=== PATIENT | female | born 1990 | race American Indian/Alaskan Native ===

== ENCOUNTER 2016-08-20 13:05 | Emergency (ER) | payer MEDICAID ==
[2016-08-20] MEDS ORDERED: Sodium Chloride 0.9% 1,000 ML IV STA (14:25)
--- NOTE | 2016-08-20 14:50 | ED PDOC ---
Arrival/HPI - General Chief Complaint: Dental Pain Time Seen by Provider: 08/20/16 14:11 Historian: Patient - History of Present Illness Narrative History of Present Illness (Text): 08/20/16 14:32 Ralph Alvarez is a 26 year old female, who is about 7-8 weeks , who presents to the emergency department for a dental abscess and sharp left sided abdominal pain x 1 day. Patient had work done on the tooth with the abscess but it returned. Patient states she experiences pain with biting and hot/warm foods. No trouble swalling. Patient's abdominal pain does not have any alleviating or worsening factors. It's left lower quadrant intermittent and sharp at times x 1 day. No vagininal bleeding. Some white thick discharge. Patient otherwise denies any fever, chills, chest pain, shortness of breath, nausea, vomiting, diarrhea, urinary symptoms, back pain, neck pain, headache, dizziness, or any other complaints. P: 1 A: 1 PMD: None Clam Digger: None 08/20/16 15:09 Time/Duration: 24 hours Symptom Onset: Gradual Symptom Course: Unchanged Activities at Onset: Light Context: Home Past Medical History - Provider Review Nursing Documentation Reviewed: Yes - Reproductive Menopause: No - Psychiatric Hx Substance Use: No - Anesthesia Hx Anesthesia: No Hx Anesthesia Reactions: No Hx Malignant Hyperthermia: No Family/Social History - Physician Review Nursing Documentation Reviewed: Yes Family/Social History: No Known Family HX Smoking Status: Unknown If Ever Smoked Hx Alcohol Use: Yes Frequency of alcohol use: Socially Hx Substance Use: No Allergies/Home Meds Allergies/Adverse Reactions: Allergies shellfish derived Allergy (Verified 08/20/16 13:27) RASH Home Medications: Home Meds Medication Instructions Recorded Confirmed Vit Calc,Iron,Folic 1 each PO DAILY 08/20/16 08/20/16 [ Vitamins] Review of Systems - Physician Review All systems were reviewed & negative as marked: Yes - Review of Systems Constitutional: Normal. absent: Fevers Eyes: Normal ENT: Other (Dental Abscess) Respiratory: Normal. absent: SOB, Cough Cardiovascular: Normal. absent: Chest Pain Gastrointestinal: Normal. absent: Abdominal Pain, Diarrhea, Nausea, Vomiting Genitourinary Female: Normal, Vaginal Discharge. absent: Dysuria, Frequency, Hematuria, Urine Output Changes, Vaginal Bleeding Musculoskeletal: Normal. absent: Back Pain, Neck Pain Skin: Normal Neurological: Normal. absent: Headache, Dizziness Endocrine: Normal Hemo/Lymphatic: Normal Psychiatric: Normal Physical Exam Vital Signs Reviewed: Yes Vital Signs Temp Pulse Resp BP Pulse Ox 08/20/16 13:22 99.7 F H 77 16 119/83 99 Temperature: Febrile Blood Pressure: Normal Pulse: Regular Respiratory Rate: Normal Appearance: Positive for: Well-Appearing, Non-Toxic, Comfortable Pain Distress: None Mental Status: Positive for: Alert and Oriented X 3 - Systems Exam Head: Present: Atraumatic, Normocephalic Pupils: Present: PERRL Extroacular Muscles: Present: EOMI Conjunctiva: Present: Normal Mouth: Present: Moist Mucous Membranes, Other (Swelling of the gums of the 31st and 32nd tooth, no visual pus) Pharnyx: Present: Normal. No: ERYTHEMA Nose (External): Present: Atraumatic Nose (Internal): Present: Normal Inspection Neck: Present: Normal Range of Motion Respiratory/Chest: Present: Clear to Auscultation, Good Air Exchange. No: Respiratory Distress, Accessory Muscle Use Cardiovascular: Present: Regular Rate and Rhythm, Normal S1, S2. No: Murmurs Abdomen: Present: Normal Bowel Sounds. No: Tenderness, Distention, Peritoneal Signs Genitourinary/Pelvic Exam: Present: Normal External Genitalia, Vaginal Discharge (white thick), Cervical os Closed, Other (Working Manager RN Carolyn). No: Vaginal Bleeding, Vaginal Lesions, Adenexal Tenderness, Adenexal Mass, Cervical Motion Tendernes, Odor Back: Present: Normal Inspection Upper Extremity: Present: Normal Inspection. No: Cyanosis, Edema Lower Extremity: Present: Normal Inspection. No: Edema Neurological: Present: GCS=15, CN II-XII Intact, Speech Normal, Motor Func Grossly Intact, Normal Sensory Function, Gait Normal Skin: Present: Warm, Dry, Normal Color. No: Rashes Psychiatric: Present: Alert, Oriented x 3, Normal Insight, Normal Concentration Medical Decision Making ED Course and Treatment: 08/20/16 14:32 Impression: 26 year old female with dental abscess and sharp abdominal cramping both starting today. Differential Diagnosis include but are not limited to: Dental abscess & Threatened Plan: -- Transvaginal US -- Labs -- IV Fluids -- Reassess and disposition Dental evaluation shows no discharge and some gum swelling and redness. Patient reports discharge but none is appreciated. Will consider early abscess and give antibiotics. Progress Notes: 08/20/16 15:19 On pelvic exam with diesel engine specialist RN Tawny, I saw white thick discharge consistent with a yeast infection. 08/20/16 16:29 Patient feels better. She was given instructions to follow up with her obgyn and if she'd like she can follow up with Dr. Garcia our LINE INSPECTOR. She was also referred to Dr. Kendrick Dentistry for follow up of her tooth pain with possible early abscess. - Lab Interpretations Lab Results: 08/20/16 14:50 08/20/16 14:50 Lab Results 08/20/16 14:50: Blood Type O POSITIVE, Antibody Screen Negative, BBK History Checked No verified bt 08/20/16 14:50: Beta HCG, Quant 89297.00 H 08/20/16 14:50: Sodium 135, Potassium 4.1, Chloride 101, Carbon Dioxide 24, Anion Gap 14, BUN 12, Creatinine 0.5, Est GFR ( Amer) > 60, Est GFR (Non- Af Amer) > 60, Random Glucose 77, Calcium 9.5, Total Bilirubin 0.5, AST 25, ALT 26, Alkaline Phosphatase 48, Total Protein 7.9, Albumin 4.4, Globulin 3.6, Albumin/Globulin Ratio 1.2 08/20/16 14:50: WBC 6.8, RBC 4.27, Hgb 12.3, Hct 36.3, MCV 85.0, MCH 28.8, MCHC 33.9, RDW 13.2, Plt Count 229, MPV 10.6, Gran % 62.0, Lymph % (Auto) 29.1, [place] % (Auto) 7.7 H, Eos % (Auto) 0.9 L, Baso % (Auto) 0.3, Gran # 4.21, Lymph # 2.0 , [place] # 0.5, Eos # 0.1, Baso # 0.02 I have reviewed the lab results: Yes - RAD Interpretation Radiology Orders: 08/20/16 14:25 OB TRANSVAGINAL [US] Stat Loom Overhauler: Radiologist - Medication Orders Current Medication Orders: Sodium Chloride (Sodium Chloride 0.9%) 1,000 mls @ 100 mls/hr IV .Q10H STA Stop: 08/21/16 00:24 Last Admin: 08/20/16 14:51 Dose: 100 mls/hr - Darbyibe Statement The provider has reviewed the documentation as recorded by the Abdiaziz Villalta Provider Attestation: All medical record entries made by the Abdiaziz were at my direction and personally dictated by me. I have reviewed the chart and agree that the record accurately reflects my personal performance of the history, physical exam, medical decision making, and the department course for this patient. I have also personally directed, reviewed, and agree with the discharge instructions and disposition. Disposition/Present on Arrival - Present on Arrival Any Indicators Present on Arrival: No History of DVT/PE: No History of Uncontrolled Diabetes: No Urinary Catheter: No History of Decub. Ulcer: No History Surgical Site Infection Following: None - Disposition Have Diagnosis and Disposition been Completed?: Yes Diagnosis: Vaginal yeast infection, Dental abscess Disposition: HOME/ ROUTINE Disposition Time: 16:31 Patient Plan: Discharge Patient Problems: Current Active Problems Problem Status Onset Vaginal yeast infection Acute Dental abscess Acute Condition: GOOD Discharge Instructions (ExitCare): Threatened Miscarriage (ED), Vulvovaginal Candidiasis (ED), Dental Abscess (ED) Additional Instructions: Ms Alvarez, thank you for letting us take care of you today. Your provider was Dr. Cameron. You were treated for Threatened , Vaginal Candidiasis, Dental Abscess. The emergency medical care you received today was directed at your acute symptoms. If you were prescribed any medication, please fill it and take as directed. It may take several days for your symptoms to resolve. Return to the Emergency Department if your symptoms worsen, do not improve, or if you have any other problems. Please contact your doctor or call one of the physicians/clinics you have been referred to that are listed on the Patient Visit Information form that is included in your discharge packet. Bring any paperwork you were given at discharge with you along with any medications you are taking to your follow up visit. Our treatment cannot replace ongoing medical care by a primary care provider (PCP) outside of the emergency department. Thank you for allowing the [facility] team to be part of your care today. If you had an X-Ray or CT scan: A Radiologist will review the ED reading if any change in treatment is needed we will contact you. If you had a blood, urine, or wound culture: It will take several days for the results, if any change in treatment is needed we will contact you. If you had an STI test: It will take 48 hours for the results. Please call after 1 week if you have not heard back. Prescriptions: Amoxicillin/Clavulanate [Augmentin 875 MG-125 MG] 1 tab PO BID #14 tab Clotrimazole 1% Vaginal [Lotrimin 1% Vaginal] 1 applic VG QPM #7 tube Referrals: Diego Kendrick DMD [Staff Provider] - Follow up with primary Bereket Garcia DO [Staff Provider] - Follow up with primary Forms: [employer] Visits Discharge ([place]ese)
[2016-08-20 15:11] LABS: ADD MANUAL DIFF? NO
[2016-08-20 15:21] LABS: BASO # 0.02 K/mm3 (0.0-2.0); BASO % 0.3 % (0.0-3.0); EOS # 0.1 (0.0-0.7); EOS % 0.9 % (1.5-5.0); GRAN # 4.21 (1.4-6.5); HEMATOCRIT 36.3 % (36.0-48.0); LYMPH % 29.1 % (22.0-35.0); MEAN CORPUSCULAR HEMOGLOBIN 28.8 pg (25.0-35.0); MEAN CORPUSCULAR HGB CONC 33.9 g/dl (31.0-37.0); MEAN PLATELET VOLUME 10.6 fl (7.0-11.0); MONO # 0.5 (0.1-0.6); MONO % 7.7 % (1.0-6.0); PLATELET COUNT 229 10^3/uL (120.0-450.0); RED CELL DISTRIBUTION WIDTH 13.2 % (11.5-14.5); WHITE BLOOD COUNT 6.8 10^3/ul (4.5-11.0)
[2016-08-20 15:42] LABS: ALB/GLOB RATIO 1.2 (1.1-1.8); ALKALINE PHOSPHATASE 48 U/L (38-133); ALT/SGPT 26 U/L (7-56); AST/SGOT 25 U/L (15-39); BILIRUBIN,TOTAL 0.5 mg/dL (0.2-1.3); BLOOD UREA NITROGEN 12 mg/dL (7-21); CALCIUM 9.5 mg/dL (8.4-10.5); CARBON DIOXIDE 24 mmol/L (21-33); CHLORIDE 101 mmol/L (98-107); GFR AFRICAN-AMERICAN > 60; GLUCOSE,RANDOM 77 mg/dL (70-110); POTASSIUM 4.1 mmol/L (3.6-5.0); SODIUM 135 mmol/L (132-148); TOTAL PROTEIN 7.9 g/dL (5.8-8.3)
--- NOTE | 2016-08-20 16:20 | US ---
HISTORY: Abdominal pain in . ; FDP July 05 COMPARISON: No prior TECHNIQUE: Transvaginal sonographic evaluation of the pelvis performed. Findings: Uterus measures 8.5 x 5.8 x 6.4 cm. Cervix measures 3.54 cm and is closed. There is a single living intrauterine gestation with measurements as follows: Gestational sac: MSD = 2.15 cm = 6 weeks 5 days Yolk sac: 0.34 cm pole: 0.47 = 6 weeks 1 day. Heart motion: 158 BPM Average ultrasound age: 6 weeks 3 days +/-0 weeks 3 days No free fluid seen in the cul sac. Right ovary measures 2.6 x 1.7 x 1.0 cm exhibits arterial flow. Left ovary measures 2.3 x 1.9 x 1.75 cm and also exhibits arterial flow. Small cyst measuring 1.2 x 0.92 x 0.65 cm. Impression: Single living intrauterine gestation at approximately 6 weeks 3 days +/-0 weeks 3 days. Recommend followup short-term followup ultrasound to assess continued viability. .
[2016-08-20] MEDS ORDERED: Amoxicillin-Clav 875-125 mg Tab PO STA (16:30)
[2016-08-20 16:48] VITALS: BP 122/62; PULSE 80; RESP 18; TEMP 98.7; O2SAT 100
== END 2016-08-20 16:56 | disposition home or self-care (01) ==
LOC: ED 13:05
DX: B37.3 Candidiasis of vulva and vagina (principal); K04.7 Periapical abscess without sinus
CPT/HCPCS: 76817; 80053; 84702; 85025; 86850; 86900; 87491; 87591; 99283; J7040

== ENCOUNTER 2016-12-10 19:08 | Emergency (ER) | payer MEDICAID, OTHER ==
[2016-12-10 19:18] VITALS: BMI 29.4
[2016-12-10 19:20] VITALS: BP 111/68; PULSE 82; RESP 16; TEMP 98.4; O2SAT 98
--- NOTE | 2016-12-10 20:14 | ED PDOC ---
Arrival/HPI - General Historian: Patient - History of Present Illness Time/Duration: < week Symptom Onset: Gradual Symptom Course: Unchanged Activities at Onset: Other <Marcia Hussein - Last Filed: 12/10/16 22:33> <Seamus Ferraro - Last Filed: 12/16/16 10:29> - General Time Seen by Provider: 12/10/16 19:19 - History of Present Illness Narrative History of Present Illness (Text): 12/10/16 20:11 26 year old female at 23 weeks and 3 days presents for lower abdominal pain ongoing for past few days. Patient complains of LLQ abdominal pain intermittent in nature worsening since yesterday. Patient describes the pain like a contraction in nature. Patient denies having any dysuria, hematuria, vaginal bleeding, vaginal discharge, N/v/D/C, F/C. Patient does feel movement. OBGYN: Dr. Storey (Marcia Hussein) Past Medical History - Provider Review Nursing Documentation Reviewed: Yes - Travel History Have you recently traveled outside [place] w/in the past 3 mons?: No - Infectious Disease Hx of Infectious Diseases: None - Psychiatric Hx Substance Use: No - Anesthesia Hx Anesthesia: No Hx Anesthesia Reactions: No Hx Malignant Hyperthermia: No <ChipsteffanieMarcia - Last Filed: 12/10/16 22:33> Family/Social History - Physician Review Nursing Documentation Reviewed: Yes Family/Social History: Unknown Family HX Smoking Status: Unknown If Ever Smoked Hx Alcohol Use: Yes Hx Substance Use: No <ChipsteffanieMarcia - Last Filed: 12/10/16 22:33> Allergies/Home Meds <ChipsteffanieMarcia - Last Filed: 12/10/16 22:33> <Seamus Ferraro - Last Filed: 12/16/16 10:29> Allergies/Adverse Reactions: Allergies shellfish derived Allergy (Verified 08/20/16 13:27) RASH Home Medications: Home Meds Medication Instructions Recorded Confirmed Vit Calc,Iron,Folic 1 each PO DAILY 08/20/16 08/20/16 [ Vitamins] Review of Systems - Review of Systems Constitutional: Normal. absent: Fatigue, Fevers Eyes: Normal. absent: Vision Changes ENT: Normal. absent: Sore Throat, Rhinorrhea Respiratory: Normal. absent: SOB, Cough, Sputum, Wheezing Cardiovascular: Normal. absent: Chest Pain, Palpitations, Edema, Calf Pain Gastrointestinal: Abdominal Pain. absent: Constipation, Diarrhea, Nausea, Vomiting Genitourinary Female: Normal. absent: Dysuria, Frequency, Hematuria, Vaginal Bleeding, Vaginal Discharge Musculoskeletal: Normal. absent: Arthralgias, Back Pain, Neck Pain Skin: Normal. absent: Rash, Pruritis, Skin Lesions, Laceration Neurological: Normal. absent: Headache, Dizziness Endocrine: Normal. absent: Diaphoresis, Polyuria, Polydipsia Hemo/Lymphatic: Normal. absent: Adenopathy, Easy Bleeding <Marcia Hussein - Last Filed: 12/10/16 22:33> Physical Exam Vital Signs Reviewed: Yes Temperature: Afebrile Blood Pressure: Normal Pulse: Regular Respiratory Rate: Normal Appearance: Positive for: Well-Appearing, Non-Toxic, Comfortable Pain Distress: Mild Mental Status: Positive for: Alert and Oriented X 3 - Systems Exam Head: Present: Atraumatic, Normocephalic Extroacular Muscles: Present: EOMI Mouth: Present: Moist Mucous Membranes Respiratory/Chest: Present: Clear to Auscultation, Good Air Exchange. No: Respiratory Distress, Accessory Muscle Use, Wheezes, Rales, Rhonchi Cardiovascular: Present: Regular Rate and Rhythm, Normal S1, S2. No: Murmurs, Rub, Gallop, Muffled Abdomen: Present: Normal Bowel Sounds. No: Tenderness, Distention, Peritoneal Signs, Rebound, Guarding Genitourinary/Pelvic Exam: Present: Normal External Genitalia, Vaginal Discharge (physiological ), Cervical os Closed, Other (performed with RN in room ). No: Vaginal Bleeding, Vaginal Lesions, Adenexal Tenderness, Adenexal Mass, Cervical Motion Tendernes, Odor Lower Extremity: Present: Normal Inspection. No: Edema, CALF TENDERNESS Neurological: Present: GCS=15, Speech Normal Skin: Present: Warm, Dry, Normal Color. No: Rashes Psychiatric: Present: Alert, Oriented x 3, Normal Insight, Normal Concentration <Marcia Hussein - Last Filed: 12/10/16 22:33> Medical Decision Making - Lab Interpretations I have reviewed the lab results: Yes <Marcia Hussein - Last Filed: 12/10/16 22:33> <Seamus Ferraro - Last Filed: 12/16/16 10:29> ED Course and Treatment: 12/10/16 20:16 26 y/o at 23 weeks 3 days presents for lower abd pain. Will check CBC, BMP, UA and urine culture and pelvic ultrasound 12/10/16 21:05 Patient states that she urinated and developed LLQ pain again. will give 500 cc of NS bolus. Patient's OBGYN Dr. Storey is called but was unable to go through. 12/10/16 21:58 Patient is noted to be anemic on blood work. Stool occult is negative. Pt denie shaving any rectal bleeding, melena or blood in stool. 12/10/16 22:26 Transvaginal US is negative. Patient is told to follow up with OBGYN upon discharge. She has an appointment scheduled for 12/1412/10/16 22:29 Pelvic US shows viable fetus at 22 wks 5 days. HR of 139 12/10/16 22:33 Patient will be discharged with Augmentin for dental infection. It is explained to patient that Augmentin is a class B for . (Jovita,Marcia) 12/10/16 21:09 Patient Seen With Resident: In agreement with resident note which contains more details about the patient. Patient was seen and evaluated with resident. Came up with plan and treatment together. I reviewed patient's ER visit from July,. She states last OB appointment was one month ago. She currently has NO ABDOMINAL PAIN on exam. Abdomen is gravid but nontender. There is no fever. No history of vaginal bleeding. She denies rectal bleeding or dark stool. Not hypotensive or tachycardic. No vaginal discharge or bleeding noted on exam. She has pain to right sided tooth but I do not appreciate gum discharge or facial swelling. She states she did follow-up with a dentist but stated that they did not recommend extraction. She is afebrile, nontoxic appearing. Anemia noted and Hgb compared to previous visit. Rectal exam reveals no melena or active bleeding. She is not hypotensive or tachycardic and denies any abdominal bleeding. She has been informed of abnormal labs, and need for close follow-up. Suspect this is secondary to as there is no active bleeding or CV instability noted. Ultrasound pending. She has follow-up with her OB on December 14. 12/10/16 22:13 Upon return from ultrasound, patient continues to have NO abdominal pain. No facial edema or erythema. No systemic symptoms. NO vaginal bleeding. She reports no pain with serial exams in ED. Ultrasound report reviewed with patient. I stressed need for ob follow-up which she has on 12/14, as well as need for dental follow-up. (Seamus Ferraro) - Lab Interpretations Narrative Lab Interpretation (Text): 12/10/16 21:47 Hgb is noted to 9.6 UA was negative (Marcia Hussein) Microbiology Results: Microbiology Results 12/10/16 21:16 Urine Urine Culture - Final No Growth (<1,000 CFU/ML) Lab Results: 12/10/16 21:16 12/10/16 21:16 Lab Results 12/10/16 21:16: Sodium 135, Potassium 3.4 L, Chloride 105, Carbon Dioxide 22, Anion Gap 11, BUN 8, Creatinine 0.6, Est GFR ( Amer) > 60, Est GFR (Non- Af Amer) > 60, Random Glucose 90, Calcium 9.0 12/10/16 21:16: Urine Color Yellow, Urine Appearance Clear, Urine pH 6.0, Ur Specific [place] 1.020, Urine Protein Negative, Urine Glucose (UA) Negative, Urine Ketones Negative, Urine Blood Negative, Urine Nitrate Negative, Urine Bilirubin Negative, Urine Urobilinogen 0.2, Ur Leukocyte Esterase Negative 12/10/16 21:16: WBC 8.2 D, RBC 3.39 L, Hgb 9.6 L, Hct 29.0 L, MCV 85.5, MCH 28.3, MCHC 33.1, RDW 13.4, Plt Count 191, MPV 10.9 - RAD Interpretation Radiology Orders: 12/10/16 21:04 AGE [US] Stat - Medication Orders Current Medication Orders: Discontinued Medications Sodium Chloride (Sodium Chloride 0.9%) 500 mls @ 999 mls/hr IV .Q31M STA Stop: 12/10/16 21:18 Last Admin: 12/10/16 21:34 Dose: 999 mls/hr <Marcia Hussein - Last Filed: 12/10/16 22:33> - Scribe Statement The provider has reviewed the documentation as recorded by the Scribe <Seamus Ferraro - Last Filed: 12/16/16 10:29> - Scribe Statement Giana Mireles Provider Scribe Attestation: All medical record entries made by the Scribe were at my direction and personally dictated by me. I have reviewed the chart and agree that the record accurately reflects my personal performance of the history, physical exam, medical decision making, and the department course for this patient. I have also personally directed, reviewed, and agree with the discharge instructions and disposition. (Seamus Ferraro) Disposition/Present on Arrival - Present on Arrival Any Indicators Present on Arrival: No History of DVT/PE: No History of Uncontrolled Diabetes: No Urinary Catheter: No History of Decub. Ulcer: No History Surgical Site Infection Following: None - Disposition Have Diagnosis and Disposition been Completed?: Yes Disposition Time: 22:35 Patient Plan: Discharge <Marcia Hussein - Last Filed: 12/10/16 22:33> <Seamus Ferraro - Last Filed: 12/16/16 10:29> - Disposition Diagnosis: Abdominal pain, , Pain, dental Disposition: HOME/ ROUTINE Condition: GOOD Additional Instructions: Ralph Alvarez, thank you for letting us take care of you today. Your provider was Dr. Marcia Hussein. You were treated for abdominal pain. The emergency medical care you received today was directed at your acute symptoms. If you were prescribed any medication, please fill it and take as directed. It may take several days for your symptoms to resolve. Return to the Emergency Department if your symptoms worsen, do not improve, or if you have any other problems. Please contact your doctor or call one of the physicians/clinics you have been referred to that are listed on the Patient Visit Information form that is included in your discharge packet. Bring any paperwork you were given at discharge with you along with any medications you are taking to your follow up visit. Our treatment cannot replace ongoing medical care by a primary care provider (PCP) outside of the emergency department. [facility] care [facility]. If you had an X-Ray or CT scan: A Radiologist will review the ED reading if any change in treatment is needed we will contact you. If you had a blood, urine, or wound culture: It will take several days for the results, if any change in treatment is needed we will contact you. If you had an STI test: It will take 48 hours for the results. Please call after 1 week if you have not heard back. Prescriptions: Amoxicillin/Clavulanate [Augmentin 875 MG-125 MG] 1 tab PO BID #14 tab Referrals: Rommel Peguero MD [Primary Care Provider] - Follow up with primary Diego Kendrick DMD [Non-Staff] - Follow up with primary Forms: [employer] ([place])
[2016-12-10] MEDS ORDERED: Sodium Chloride 0.9% 500 ML IV STA (20:48)
[2016-12-10 21:32] LABS: MEAN CELL VOLUME 85.5 fl (80.0-105.0); MEAN CORPUSCULAR HEMOGLOBIN 28.3 pg (25.0-35.0); MEAN CORPUSCULAR HGB CONC 33.1 g/dl (31.0-37.0); MEAN PLATELET VOLUME 10.9 fl (7.0-11.0); RED CELL DISTRIBUTION WIDTH 13.4 % (11.5-14.5); URINE BILIRUBIN NEGATIVE (NEGATIVE); URINE BLOOD NEGATIVE (NEGATIVE); URINE GLUCOSE (UA) NEGATIVE (NEGATIVE); URINE KETONE NEGATIVE (NEGATIVE); URINE LEUKOCYTE ESTERASE NEGATIVE Leu/uL (NEGATIVE); URINE PROTEIN NEGATIVE mg/dL (<30 mg/dL); URINE UROBILINOGEN 0.2 E.U./dL (<1 E.U./dL); WHITE BLOOD COUNT 8.2 10^3/ul (4.5-11.0)
[2016-12-10 21:33] LABS: URINE APPEARANCE CLEAR (CLEAR); URINE COLOR YELLOW (YELLOW)
[2016-12-10 21:40] LABS: BLOOD UREA NITROGEN 8 mg/dL (7-21); CARBON DIOXIDE 22 mmol/L (21-33); CHLORIDE 105 mmol/L (98-107); GFR AFRICAN-AMERICAN > 60; GLUCOSE,RANDOM 90 mg/dL (70-110); POTASSIUM 3.4 mmol/L (3.6-5.0); SODIUM 135 mmol/L (132-148)
[2016-12-10] MEDS ORDERED: Potassium Chloride 20 mEq ER Tab PO STA (21:45)
--- NOTE | 2016-12-10 22:51 | US ---
EXAM: US After First Trimester, Transabdominal CLINICAL HISTORY: 26 years old, female; Pain; complicated by abdominal or pelvic pain; Left lower quadrant; Second trimester; Gestational age or lmp: 23wks; ; Additional info: 23 weeks , abdominal pain TECHNIQUE: Real-time transabdominal obstetrical ultrasound of the maternal pelvis and a second or third trimester with image documentation. COMPARISON: US - OB TRANSVAGINAL 08/20/2016 3:33:18 PM FINDINGS: Fetus: Single live intrauterine gestation. Heart rate: heart rate of 137 beats per minute. Presentation: Cephalic. Placenta: Anterior placenta. No placenta previa or abruption. Amniotic fluid: Normal. Anatomy: No gross anomaly is appreciated. BIOMETRICS Gestational age by US: Estimated gestational age of 22 weeks 5 days by measurements. EFW: Estimated weight of 530 g. BPD: 5.5 cm, correlating with 22 weeks 6 days. HC: 20.4 cm, correlating with 22 weeks 4 days. AC: 18.0 cm, correlating with 22 weeks 6 days. FL: 3.9 cm, correlating with 22 weeks 4 days. MATERNAL: Uterus: Unremarkable. No myometrial mass. Cervix: No cervical dilatation or effacement. Free fluid: No free fluid. IMPRESSION: 1. Single live intrauterine gestation. 2. Incidental/non-acute findings are described above.
== END 2016-12-10 22:58 | disposition home or self-care (01) ==
LOC: ED 19:08
DX: O26.892 Other specified pregnancy related conditions, second trimester (principal); Z3A.23 23 weeks gestation of pregnancy; R10.30 Lower abdominal pain, unspecified
CPT/HCPCS: 76815; 80048; 81003; 85027; 87086; 99283; J7040